=== PATIENT | female | born 1935 | race Caucasian/White ===

== ENCOUNTER 2018-01-20 06:21 | Day surgery (SDC) | payer MEDICARE, OTHER ==
[~2018-01-20] VITALS: Ht 165.1 cm; Wt 67.8 kg
[~2018-01-20 06:21] MED LIST: ASPI81TA82 PO; ATOR40TA49 PO; OMEP20TA39 PO; SYNT88TA PO
[2018-01-20] MEDS ORDERED: IOHEXOL 350 MG/ML 100 ML BTL (for Cath Lab) OTHER ONE (06:22)
[2018-01-20] MEDS ORDERED: SODIUM CHLOR 0.9% 1000 ML INJ 1,000 ML IV SCH ×2 (06:45→10:00)
[2018-01-20] MEDS ORDERED: ARTH650T6 PO (07:04)
[2018-01-20] MEDS ORDERED: NITR1SUB3 SL (07:04)
[2018-01-20] MEDS ORDERED: METO1TAB42 PO (07:04)
[2018-01-20] MEDS ORDERED: CHOL5000 PO (07:04)
[2018-01-20] MEDS ORDERED: SIMV40TA PO (07:04)
[2018-01-20] MEDS ORDERED: TYLE325T PO (07:04)
[2018-01-20] MEDS ORDERED: VITA10002 PO (07:04)
[2018-01-20] MEDS ORDERED: LEVO88TA2 PO (07:04)
[2018-01-20] MEDS ORDERED: ASPI81TA23 PO (07:04)
[2018-01-20 07:05] VITALS: BP 130/66; PULSE 61; RESP 16; TEMP 98.1; O2SAT 97
[2018-01-20 07:16] LABS: AUTOMATED NEUTROPHIL # 3.7 TH/MM3 (1.8-7.7); BASOPHIL % 0.7 % (0.0-2.0); EOSINOPHIL # 0.5 TH/MM3 (0-0.4); EOSINOPHIL % 7.6 % (0.0-4.0); HEMATOCRIT 43.6 % (35.0-46.0); HEMOGLOBIN 14.8 GM/DL (11.6-15.3); LYMPH % 26.7 % (9.0-44.0); LYMPHOCYTE # 1.8 TH/MM3 (1.0-4.8); MEAN CELL VOLUME 97.9 FL (80.0-100.0); MEAN CORPUSCULAR HEMOGLOBIN 33.2 PG (27.0-34.0); MEAN CORPUSCULAR HGB CONC 33.9 % (32.0-36.0); MEAN PLATELET VOLUME 7.3 FL (7.0-11.0); MONO % 9.9 % (0.0-8.0); MONOCYTE # 0.7 TH/MM3 (0-0.9); NEUT % 55.1 % (16.0-70.0); PLATELET COUNT 221 TH/MM3 (150-450); RED BLOOD COUNT 4.45 MIL/MM3 (4.00-5.30); RED CELL DISTRIBUTION WIDTH 12.7 % (11.6-17.2); WHITE BLOOD COUNT 6.8 TH/MM3 (4.0-11.0)
[2018-01-20 07:27] LABS: PROTHROMBIN TIME - PATIENT 10.2 SEC (9.8-11.6)
[2018-01-20 07:44] LABS: BICARBONATE 28.1 MEQ/L (21.0-32.0); CALCIUM 9.1 MG/DL (8.5-10.1); CREATININE 0.99 MG/DL (0.50-1.00)
[2018-01-20] MEDS ORDERED: HEPARIN-NS/PF FLUSH BAG 2,000 ML IV FLUSH ONE (08:16)
[2018-01-20] MEDS ORDERED: diphenhydrAMINE HCL 50 MG/ML VIAL ONE (08:25)
[2018-01-20] MEDS ORDERED: MIDAZOLAM HCL 2 MG/2 ML VIAL ONE (08:56)
--- NOTE | 2018-01-20 09:42 | CATHPROC ---
[facility] HIS Report Study Information Study Number Admission Scheduled Start Study Start [id number] Jan 20 2018 6:21AM 01/20/2018 Jan 20 2018 8:13AM [place] [facility] Cardiac Catheterization Admit Source Facility Department Other [facility] - Physical Education Specialist Physician and Clinical Staff Initial MD Bautista, Katey Ironworker Machine Operator Carrie Norton,ADOLFO Recorder Keara Jacobson,FISH CAKE MAKER TECH2 Scrub Alexia Medel ,RT(R) Procedures Performed Procedure Location (Site) Vessel Name Angiogram LV LV Ventricle Coronary Angiograms LCA Left Coronary Coronary Angiograms RCA Right Coronary Equipment Time Nail Making Machine Tender Description Size Mfg Part Number Used/Scraped STARCLOSE, VASCULAR CLOSER [id number] 09:24 LIN CRITICAL CARE FR 6 Used SYSTEM *[id number] TRANSDUCER, TRUWAVE [id number] 08:26 PEREZ GILES * Used W/STOCKCOCK *[id number] [id number] *[id number] [id number] *[id number] PIGTAIL ANG. 145 INFINITI 534-652S CATHETER *[id number] 08:26 MEDLINE INDUSTRIES PACK, CCL CUSTOM * Used *[id number] 08:26 adaffix PACER PEN, SKIN DUAL W/ RULER * Used *[id number] 08:26 Visible Path MEDICAL SHEATH, FR6.5 PRELUDE 11CM FR 6.5 038ACT Used *[id number] 08:26 Visible Path MEDICAL WIRE, 3MMJ .035 180CM 180CM Used *[id number] 08:26 NAMIC MANIFOLD, 4 PORT * Used *[id number] 08:26 NYCOMED OMNIPAQUE, 350 MG, 150ML 150ML [id number] Used 09:14 NYCOMED OMNIPAQUE, 350 MG, 50ML 50ML [id number] Used [id number] 08:26 Triptelligent MEDICAL BLANKET,WARM AIR CCL * Used *[id number] History: Current Medications Medication Dosage/Unit Route Frequency Last Date/Time Taken ASA Statins (any) LOPRESSOR Synthroid NTG SL History: Allergies Allergy Reaction No Known Allergies NSAIDS (Non-Steroidal Anti- Inflamma ibuprofen alendronate sodium risedronate sodium multivitamin History: Risk Factors Family History of Hypertension Dyslipidemia Previous [facility] Previous Heart Failure Premature CAD Yes Yes No No No Prior Valve Prior PCI Prior CABG Surgery No No No Cerebrovascular Peripheral Artery Chronic Lung On Dialysis Diabetes Disease Disease Disease No No Yes No No History: Symptoms/Diagnosis Selection Items Chest pain MATTHEWS SOB History: Stress Tests Stress or Imaging Studies Performed Yes Standard Exercise Stress Test No Stress Echo No Stress Test SPECT Stress Test SPECT Result Stress Test SPECT Ischemia Risk/Extent Yes Positive Intermediate Stress Test CMR No Cardiac CTA Coronary Calcium Score No No History: Arrhythmias Selection Items Supraventricular History: Other Disease Selection Items Renal Failure/Insufficiency History: Other Current Smoker Method Quit Packs a Day Years Used Pack Years No Cigarettes 35 Years Ago 1 6 6 Labs Hgb (g/dl) Hct (%) RBC (MIL/MM3) WBC (l/cumm) Platelets (thousands) 11.60-17.00 35.00-51.00 4.00-5.90 4.00-11.00 150.00-450.00 14.8 43.6 4.4 6.8 221 Glucose (mg/dl) BUN (mg/dl) Creatinine (mg/dl) BUN:Creatinine (1:x) 74.00-106.00 7.00-18.00 0.50-1.30 10.00-20.00 104 20 0.9 22.2 Na (meq/l) K (meq/l) Cl (meq/l) CO2 (mmol/L) Ca (mg/dl) 136.00-145.00 3.50-5.10 98.00-107.00 21.00-32.00 8.50-10.10 142 4.1 107 28.1 9.1 PT (sec) PTT (sec) INR (PTT:PT) 9.80-11.60 24.30-30.10 0.90-1.10 10.2 33.1 1 CPK-MB (ng/ML) 0.50-3.60 Not Drawn Medication Medication Total Dose (Bolus/Oral) Medication Total Dosage/Unit 1% XYLOCAINE 20 mL FENTANYL 25 mcg OXYGEN 2 l/min VERSED 1 mg Medications (Bolus/Oral) Medication Time Given Dosage/Unit Administered By Reason FENTANYL 01/20/2018 8:56:12 AM 25 mcg Carrie Norton 25 mcg FENTANYL given in lab by Carrie Norton, RN in Left Antecubital via Peripheral IV. Ordered by Katey Bautista. 1% XYLOCAINE 01/20/2018 8:56:54 AM 20 mL Katey Bautista 20 mL 1% XYLOCAINE given in lab by Katey Bautista in Right Groin via Subcutaneous. Ordered by Katey Bautista. VERSED 01/20/2018 8:57:05 AM 1 mg Carrie Norton 1 mg VERSED given in lab by Carrie Norton, ADOLFO in Left Antecubital via Peripheral IV. Ordered by Katey Dumont. OXYGEN 01/20/2018 8:59:01 AM 2 l/min Carrie Norton 2 l/min OXYGEN given in lab by Carrie Norton RN via Nasal. Ordered by Katey Bautista. Initial Case Assessment Cardiovascular HR Rhythm NIBP Chest Pain 61 sr 116/59 0 Circulatory - Right Pulses Posterior Tibial Femoral 1 3 Scale (0,1,2,3,4,d) Circulatory - Left Pulses Posterior Tibial Femoral 3 Scale (0,1,2,3,4,d) Neurological State Oriented to time-place- Alert Moves all extremities person Respiration - General Respiration Rate SpO2 (%) (B/min) 15 96 Final Case Assessment Cardiovascular HR Rhythm NIBP Chest Pain 60 sr 118/67 0 Circulatory - Right Pulses Posterior Tibial Femoral 1 3 Scale (0,1,2,3,4,d) Circulatory - Left Pulses Posterior Tibial Femoral 3 Scale (0,1,2,3,4,d) Neurological State Oriented to time-place- Alert Moves all extremities person Respiration - General Respiration Rate SpO2 (%) (B/min) 18 98 Chronological Log Time Study Chronological Log 8:10:12 Patient arrived via Bed. 8:13:20 Patient Name, D.O.B, / Armband Verified By R.N. 8:13:21 Consent signed by the physician and the patient and verified by the Physical Education Specialist staff. 8:13:22 Pre-op and post- op instructions given; patient acknowledges understanding of instructions. 8:13:23 Verbal Stimulation=2 Physical Stimulation=2 Airway=2 Respiration=2 TOTAL=8. (0=absent, 1=nicole ited, 2=present) 8:13:26 Presedation assessment performed by Physical Education Specialist RN. 8:13:35 Patient has been NPO for More than 6Hrs. 8:13:38 Skin Breakdown-none 8:13:41 Patient Warmer Placed on the Table. 8:13:44 Hugh Prominences Protected 8:13:46 A # 20 IV was noted in the Antecubital (left). Grade = 0 Vitals capture started with the following parameters, Patient=Adult, Interval=5 min, Initial Pre dpsos=096 mmHg, 8:15:55 Deflation Rate=5 mmHg, Cuff placed on Right Arm 8:16:35 HR=72 bpm, WWSX=955/58 mmhg, SpO2=97.0 %, Resp=20 B/min, Pain=0, Nnamdi=10, Candelaria=2 8:21:31 Reference ECG taken 8:21:32 HR=53 bpm, YPIP=450/59 mmhg, SpO2=96.0 %, Resp=13 B/min 8:22:27 History and physical on the chart or being dictated. Assessment: Initial Case, HR=61 BPM, Rhythm=sr, SMIV=988/59 mmhg, Chest Pain=0 Right Pulses: Post Tib=1, Femoral=3 8:22:29 Left Pulses: Kolton Ped=1, Femoral=3 Neurological: State=Alert, Ox3, DUMAS Respiration: Resp=15 B/min, SpO2=96 % 8:25:50 Bilateral groins prepped with 2% chlorhexidine, and draped after a 3 minute waiting time. 8:26:31 HR=54 bpm, TLXY=543/60 mmhg, SpO2=96.0 %, Resp=17 B/min 8:29:57 Pressure channel 1 zeroed. 8:31:32 HR=60 bpm, UDPO=705/57 mmhg, SpO2=95 %, Resp=20 B/min 8:31:53 MD paged 8:36:33 HR=59 bpm, KSXX=035/60 mmhg, SpO2=95.0 %, Resp=19 B/min 8:42:11 HR=58 bpm, SKYW=283/58 mmhg, SpO2=96.0 %, Resp=18 B/min, Pain=0, Nnamdi=10, Candelaria=2 8:46:33 HR=60 bpm, MKLA=726/64 mmhg, SpO2=96.0 %, Resp=9 B/min 8:46:57 MD arrived. 8:51:32 HR=64 bpm, GJJX=141/55 mmhg, SpO2=96.0 %, Resp=15 B/min Time Out. Correct patient, correct procedure, correct physician, power injector loaded with cont rast with surgical team 8:55:08 present. Time Out Concurred by MD and individual staff in procedure. 8:55:25 Case Start 8:56:12 25 mcg FENTANYL given in lab by Carrie Norton, ADOLFO in Left Antecubital via Peripheral IV. Or dered by Katey Bautista. 8:56:35 HR=53 bpm, ULCR=328/62 mmhg, SpO2=97.0 %, Resp=16 B/min 8:56:54 20 mL 1% XYLOCAINE given in lab by Katey Bautista in Right Groin via Subcutaneous. Ordered b y Katey Bautista. 8:57:05 1 mg VERSED given in lab by Carrie Norton RN in Left Antecubital via Peripheral IV. Ordere d by Katey Bautista. 8:59:01 2 l/min OXYGEN given in lab by Carrie Norton RN via Nasal. Ordered by Katey Bautista. 8:59:27 Access site was Right Femoral Artery. 8:59:39 A SHEATH, FR6.5 PRELUDE 11CM FR 6.5 was advanced into the Fem Art (right) using the Percutan eous technique. 9:01:38 HR=58 bpm, UJXJ=711/54 mmhg, SpO2=92.0 %, Resp=11 B/min A JL 4.0 INFINITI CATHETER FR 6 was advanced over a wire. OMNIPAQUE, 350 MG, 150ML 150ML was use d for :54 injections. Recorded Pressure: Ao, HR=61, Condition=Condition 1 9:04:07 (Aorta) Ao 97/48/67 9:05:49 The LCA was injected and visualized at various angles. OMNIPAQUE, 350 MG, 150ML 150ML used. 9:06:35 HR=62 bpm, NIBP=99/54 mmhg, SpO2=94.0 %, Resp=14 B/min 9:09:04 Catheter was removed A JR 4.0 INFINITI CATHETER FR 6 was advanced over a wire. OMNIPAQUE, 350 MG, 150ML 150ML was use d for 9:09:05 injections. 9:11:34 HR=65 bpm, TWFC=199/46 mmhg, SpO2=97.0 %, Resp=14 B/min 9:12:20 The RCA was injected and visualized at various angles. OMNIPAQUE, 350 MG, 150ML 150ML used. 9:12:37 Catheter was removed A PIGTAIL ANG. 145 INFINITI CATHETER FR 6 was advanced over a wire. OMNIPAQUE, 350 MG, 50ML 50ML was used 9:13:31 for injections. Recorded Pressure: LV, HR=66, Condition=Condition 1 9:15:27 (Left Ventricle) LV 107/4/16 9:16:35 HR=64 bpm, EOGU=523/58 mmhg, SpO2=98.0 %, Resp=14 B/min 9:17:22 The LV was injected at 10 cc/sec for a total of 24. OMNIPAQUE, 350 MG, 50ML 50ML used. Recorded Pressure: LV, Ao, HR=72, Condition=Condition 1 9:18:17 (Left Ventricle) LV 115/9/17, (Aorta) Ao 122/55/86 9:19:21 Catheter was removed 9:21:34 HR=64 bpm, GPRY=582/61 mmhg, SpO2=99.0 %, Resp=17 B/min 9:23:31 An injection in the Fem Art (right) was made through the SHEATH, FR6.5 PRELUDE 11CM FR 6.5. 9:23:41 STARCLOSE, VASCULAR CLOSER SYSTEM FR 6 placement in the Fem Art (right) 9:26:35 HR=62 bpm, SNBP=450/67 mmhg, SpO2=99.0 %, Resp=11 B/min 9:28:46 Case End 9:29:14 Sterile dressing applied to site 9:29:15 No case complications noted. 9:29:16 Cine recording checked. Assessment: Final Case, HR=60 BPM, Rhythm=sr, WBBE=993/67 mmhg, Chest Pain=0 Right Pulses: Post Tib=1, Femoral=3 9:29:21 Left Pulses: [place] Ped=1, Femoral=3 Neurological: State=Alert, Ox3, DUMAS Respiration: Resp=18 B/min, SpO2=98 % 9:30:15 Bedside Report will be given. 9:31:36 HR=56 bpm, OPOS=214/71 mmhg, HyO0=473.0 %, Resp=19 B/min 9:34:36 Patient moved to bed 9:34:40 Vitals capture stopped. 9:36:02 Patient transported to DOCU End Study - Contrast Media Used In Study Contrast Total Opened (mL) Total Used (mL) Total Wasted (mL) Omnipaque 70 70 0 End Study - Maximum Contrast Load Max Contrast Load (mL) 376.8 End Study - Radiation Exposure Fluoro Time (minutes) 2.7 End Study - Sheaths Sheaths Pulled By Sheath Hold Time (min) Katey Bautista End Study - Patient Fluids IV Intake (mL) Total Output (mL) 1000 End Study - Patient Disposition Complications Transferred To Interventional Outcome No Telemetry Bed No attempt made
[2018-01-20] MEDS ORDERED: ONDANSETRON HCL 4 MG/2 ML VIAL IV PUSH PRN (09:45)
[2018-01-20] MEDS ORDERED: SODIUM CHLORIDE 0.9% FLUSH 10 ML FLUSH IV FLUSH PRN (09:45)
[2018-01-20] MEDS ORDERED: SODIUM CHLOR 0.9% 250 ML INJ 250 ML IV PRN (09:45)
[2018-01-20] MEDS ORDERED: BACITRACIN OINT 0.9 GM PKT TOP ONE (09:45)
[2018-01-20] MEDS ORDERED: ATROPINE SULFATE 1 MG/ML VIAL IV PUSH PRN (09:45)
[2018-01-20] MEDS ORDERED: MISC INFORMATION XX ONE (09:45)
[2018-01-20] MEDS ORDERED: ACETAMINOPHEN 500 MG CPLT PO PRN (10:00)
--- NOTE | 2018-01-20 10:19 | MA ---
cc: Katey Bautista MD, Deanna K MD DATE: 01/20/2018 PROCEDURE: 1. Left heart catheterization. 2. Coronary arteriogram. 3. Left ventriculogram. 4. Right femoral arteriogram. 5. Right femoral arteriotomy site closure using a StarClose device. ONION TOPPER: Eleazar Bautista MD CHIEF INFORMATION OFFICER: Alexia HOOVER(Prudence). INDICATION: Recurrent angina equivalent symptoms and abnormal myocardial perfusion stress study with moderate inferior and mild lateral wall ischemia. Because of her recurrent symptoms and poorly controlled risk factors, she was advised to proceed with cardiac catheterization to delineate her coronary anatomy. PROCEDURE: After obtaining informed consent, the right groin was prepped in the usual sterile fashion. 15 mL of 1% lidocaine was used for local anesthesia. Using the modified Seldinger technique, the right femoral artery was cannulated and a 6-Colombian short sheath was inserted in the right femoral artery. Using the above-mentioned diagnostic catheter, selective coronary angiograms were performed. This was followed by left ventriculogram performed in the MANZANARES view at 30-degree angle. At the end of the procedure, right femoral system was injected revealing no significant disease and a StarClose device was applied achieving adequate hemostasis. The patient tolerated the procedure well without complication at the time of dictation. CARDIAC CATHETERIZATION FINDINGS: HEMODYNAMICS: Aortic pressure was 120/60 mmHg. Mean aortic pressure was 80 mmHg. LVEDP was around 18 mmHg. There was no gradient across the aortic valve. CORONARIES: Left main artery arose from the left sinus of Valsalva, a relatively long vessel, had minimal irregularities of less than 20%. Left circumflex artery branched from the left main artery, had mild luminal irregularities of less than 20%. It gave a high OM branch that bifurcated to upper and lower branches and those had mild proximal disease ranging between 30-40%. The circumflex distally gave 2 PLV branches that were tortuous and had minimal irregularities of less than 20%. Left anterior descending artery branched from the left main artery. This had mild diffuse irregularities of less than 20%. The LAD extended distally to wrap around the apex. It gave diagonal and septal branches that were minute and had minimal irregularities of less than 20%. Right coronary artery arose from the right sinus of Valsalva. This had a proximal 40% on a bend with some possible spasm, but no damping of pressure. The RCA gave PDA and PLV arteries distally that were relatively of good size and had minimal irregularities of less than 20%. Two mid-RV branches that were relatively small with no significant disease. LEFT VENTRICULOGRAM: Left ventriculogram revealed adequate wall motion, preserved systolic function, ejection fraction visual estimates around 60%. There is mild mitral regurgitation. CONCLUSION OF THE CARDIAC CATHETERIZATION: 1. Mild epicardial coronary artery disease with mild to moderate ostial RCA disease. 2. Dominant RCA system. 3. Normal left ventricular systolic function. 4. Elevated left ventricular end-diastolic pressure (18 mmHg). RECOMMENDATIONS: Medical therapy with tight control of risk factors. MD LALIT Galvez/SB , 09:38 AM , 10:18 AM
--- NOTE | 2018-01-20 20:17 | EKG ---
Date Performed: 01/20/2018 Time Performed: 07:18:28 PTAGE: 82 years EKG: Sinus rhythm . Normal ECG PREVIOUS TRACING : 06/09/2014 15.42 Since the previous tracing, no significant change noted DOCTOR: Bruce Minaya Interpretating Date/Time 01/20/2018 20:15:18
== END 2018-01-20 13:10 | disposition home or self-care (01) ==
LOC: HDOC 06:21 → HDIC 06:21 → HDOC 13:10
PROVIDERS: ATTEND Internal Medicine Interventional Cardiology
DX: I25.119 Atherosclerotic heart disease of native coronary artery with unspecified angina pectoris (principal); R94.39 Abnormal result of other cardiovascular function study; I34.0 Nonrheumatic mitral (valve) insufficiency; I34.1 Nonrheumatic mitral (valve) prolapse; R07.89 Other chest pain; I47.1 Supraventricular tachycardia; E03.9 Hypothyroidism, unspecified; E78.5 Hyperlipidemia, unspecified; E55.9 Vitamin D deficiency, unspecified; N18.4 Chronic kidney disease, stage 4 (severe); R73.02 Impaired glucose tolerance (oral); J32.8 Other chronic sinusitis; I73.9 Peripheral vascular disease, unspecified; R03.0 Elevated blood-pressure reading, without diagnosis of hypertension; R55 Syncope and collapse; I38 Endocarditis, valve unspecified
CPT/HCPCS: 80048; 85025; 85610; 85730; 93005; 93458; 99152; 99153; C1760; C1769; C1893; G0269; J1200; J1644; J2250; J3010; Q9967

== ENCOUNTER 2018-02-26 13:51 | Emergency (ER) | payer OTHER ==
[~2018-02-26] VITALS: Ht 165.1 cm; Wt 68.0 kg
[~2018-02-26 13:51] MED LIST changes: +ARTH650T6 PO; +ASPI81TA23 PO; -ASPI81TA82 PO; -ATOR40TA49 PO; +CHOL5000 PO; +LEVO88TA2 PO; +METO1TAB42 PO; +NITR1SUB3 SL; -OMEP20TA39 PO; +SIMV40TA PO; -SYNT88TA PO; +TYLE325T PO; +VITA10002 PO
[2018-02-26 14:00] VITALS: BP 119/65; PULSE 61; RESP 18; TEMP 98; O2SAT 99
[2018-02-26] MEDS ORDERED: ONDANSETRON HCL 4 MG/2 ML VIAL IVP ONE (15:00)
[2018-02-26] MEDS ORDERED: SODIUM CHLORID 0.9% 500 ML INJ 500 ML IV ONE (15:00)
--- NOTE | 2018-02-26 15:02 | PD ---
HPI Chief Complaint: General Weakness Time Seen by Provider: 14:28 Travel History International Travel<30 days: No Contact w/Intl Traveler<30days: No Traveled to known affect area: No History of Present Illness HPI 82-year-old female presents emergency department at the request of her primary care physician, Dr. Beatty for evaluation of lightheadedness, weakness that has been persistent for the last 2-3 days. She has associated nausea. Denies shortness of breath but says she does have some reproducible pain when taking a deep breath. States that she was at her primary care physician office for reevaluation of chest wall and shoulder musculoskeletal pain when she recommended patient come to the emergency department for evaluation. Says that last week patient moved in objects with water and wet laundry one day and woke up the next with right anterior chest wall, shoulder and scapular pain. She was evaluated and prescribed 400 mg ibuprofen 3 times daily for muscular skeletal pain. Says that the pain has reduced with ibuprofen and heat however however is still persistent. She believes that this is why patient was referred to the hospital. Says that she has had some loose stools as a result of this ibuprofen. Of note, patient had a heart cath 1 months ago but no stents were placed. Says she was given a different dose of metoprolol 1 month ago as well and believes this may be contributing to her weakness. The heart cath was completed because she mentioned to her dovetailer that she has some chest tightness while playing cards 1 day. She had a Holter as well but does not know the results. She denies any falls. She takes BASA daily. No other blood thinners or anticoagulants. PFSH Past Medical History Cancer: Yes (skin) Cardiac Catheterization: Yes Cardiovascular Problems: Yes (angina) High Cholesterol: Yes Hypertension: Yes Thyroid Disease: Yes (HYPO) Menopausal: Yes Social History Alcohol Use: Yes (OCCASSIONAL) Tobacco Use: No Substance Use: No Allergies-Medications (Allergen,Severity, Reaction): Coded Allergies: NSAIDS (Non-Steroidal Anti-Inflamma (Verified Allergy, Unknown, 01/20/18) alendronate sodium (Verified Allergy, Unknown, 01/20/18) ibuprofen (Verified Allergy, Unknown, 01/20/18) risedronate sodium (Verified Allergy, Unknown, 01/20/18) Uncoded Allergies: multivitamin (Adverse Reaction, Unknown, 01/20/18) Reported Meds & Prescriptions Reported Meds & Active Scripts Active Robaxin (Methocarbamol) 500 Mg Tab 500 Mg PO TID 3 Days Reported Vitamin D3 (Cholecalciferol) 5,000 Unit Cap 5,000 Units PO DAILY Vitamin B-12 (Cyanocobalamin) 1,000 Mcg Tab 1,000 Mcg PO DAILY Tylenol (Acetaminophen) 325 Mg Tab 325 Mg PO Q4H Simvastatin 40 Mg Tab 40 Mg PO HS Nitroglycerin SL (Nitroglycerin) 0.4 Mg Subl 0.4 Mg SL DIRECTED PRN ONE TABLET UNDER THE TONGUE NEEDED FOR CHEST PAIN, MAY REPEAT EVERY FIVE MINUTES FOR A TOTAL OF 3 DOSES OR CALL 911 IF NO RELIEF Metoprolol Succinate ER 24 HR (Metoprolol Succinate) 25 Mg Tab 25 Mg PO DAILY Levothyroxine (Levothyroxine Sodium) 88 Mcg Tab 88 Mcg PO DAILY Aspirin EC (Aspirin) 81 Mg Tabdr 81 Mg PO DAILY Arthritis Pain Reliever ER 8 HR (Acetaminophen) 650 Mg Tab 650 Mg PO Q8HR PRN Review of Systems Except as stated in HPI: all other systems reviewed are Neg Physical Exam Narrative GENERAL: Well developed, well-nourished in no apparent distress SKIN: Focused skin assessment warm/dry. HEAD: Atraumatic. Normocephalic. EYES: Pupils equal and round. No scleral icterus. No injection or drainage. ENT: No nasal bleeding or discharge. Mucous membranes pink and moist. NECK: Trachea midline. No JVD. Tenderness palpation of the right sternocleidomastoid muscles CARDIOVASCULAR: Regular rate and rhythm. No murmur appreciated. RESPIRATORY: No accessory muscle use. Clear to auscultation. Breath sounds equal bilaterally. GASTROINTESTINAL: Abdomen soft, non-tender, nondistended. Hepatic and splenic margins not palpable. MUSCULOSKELETAL: No obvious deformities. No clubbing. No cyanosis. No edema. Homans sign negative bilaterally. Significant tenderness to light palpation in the musculature of the subscapular area with muscle spasms. Tenderness palpation of the musculature of the trapezius and right anterior pectoral. NEUROLOGICAL: Awake and alert. No obvious cranial nerve deficits. Motor grossly within normal limits. Normal speech. PSYCHIATRIC: Appropriate mood and affect; insight and judgment normal. Data Data Last Documented VS Vital Signs Date Time Temp Pulse Resp B/P (MAP) Pulse Ox O2 Delivery O2 Flow Rate FiO2 02/26/18 17:33 65 17 140/65 (90) 97 Room Air 02/26/18 14:00 98.0 Orders Orders Electrocardiogram (02/26/18 14:55) Complete Blood Count With Diff (02/26/18 14:55) Comprehensive Metabolic Panel (02/26/18 14:55) Magnesium (Mg) (02/26/18 14:55) Ckmb (Isoenzyme) Profile (02/26/18 14:55) Troponin I (02/26/18 14:55) Act Partial Throm Time (Ptt) (02/26/18 14:55) Prothrombin Time / Inr (Pt) (02/26/18 14:55) Urinalysis - C+S If Indicated (02/26/18 14:55) Chest, Single Ap (02/26/18 14:55) Ct Brain W/O Iv Contrast(Rout) (02/26/18 14:55) Ondansetron Inj (Zofran Inj) (02/26/18 15:00) Sodium Chlorid 0.9% 500 Ml Inj (Ns 500 M (02/26/18 15:00) Orthostatic Vital Signs (02/26/18 17:14) Orphenadrine Inj (Norflex Inj) (02/26/18 17:30) Acetamin-Hydrocod 325-5 Mg ([place] 5-325 (02/26/18 17:30) Ed Discharge Order (02/26/18 18:51) Labs Laboratory Tests Test 02/26/18 15:00 White Blood Count 7.6 TH/MM3 Red Blood Count 4.62 MIL/MM3 Hemoglobin 14.8 GM/DL Hematocrit 44.8 % Mean Corpuscular Volume 96.9 FL Mean Corpuscular Hemoglobin 31.9 PG Mean Corpuscular Hemoglobin Concent 32.9 % Red Cell Distribution Width 13.1 % Platelet Count 221 TH/MM3 Mean Platelet Volume 7.6 FL Neutrophils (%) (Auto) 66.2 % Lymphocytes (%) (Auto) 24.5 % Monocytes (%) (Auto) 6.6 % Eosinophils (%) (Auto) 2.2 % Basophils (%) (Auto) 0.5 % Neutrophils # (Auto) 5.0 TH/MM3 Lymphocytes # (Auto) 1.9 TH/MM3 Monocytes # (Auto) 0.5 TH/MM3 Eosinophils # (Auto) 0.2 TH/MM3 Basophils # (Auto) 0.0 TH/MM3 CBC Comment DIFF FINAL Differential Comment Prothrombin Time 10.0 SEC Prothromb Time International Ratio 1.0 RATIO Activated Partial Thromboplast Time 31.0 SEC Urine Color COLORLESS Urine Turbidity CLEAR Urine pH 5.0 Urine Specific [place] 1.007 Urine Protein NEG mg/dL Urine Glucose (UA) NEG mg/dL Urine Ketones NEG mg/dL Urine Occult Blood NEG Urine Nitrite NEG Urine Bilirubin NEG Urine Urobilinogen LESS THAN 2.0 MG/DL Urine Leukocyte Esterase TRACE Urine WBC 2 /hpf Urine Squamous Epithelial Cells 1 /hpf Microscopic Urinalysis Comment CULT NOT INDICATED Blood Urea Nitrogen 20 MG/DL Creatinine 1.04 MG/DL Random Glucose 90 MG/DL Total Protein 7.0 GM/DL Albumin 3.8 GM/DL Calcium Level 9.0 MG/DL Magnesium Level 2.3 MG/DL Alkaline Phosphatase 69 U/L Aspartate Amino Transf (AST/SGOT) 16 U/L Alanine Aminotransferase (ALT/SGPT) 19 U/L Total Bilirubin 0.5 MG/DL Sodium Level 144 MEQ/L Potassium Level 4.3 MEQ/L Chloride Level 108 MEQ/L Carbon Dioxide Level 27.4 MEQ/L Anion Gap 9 MEQ/L Estimat Glomerular Filtration Rate 51 ML/MIN Total Creatine Kinase 57 U/L Troponin I LESS THAN 0.02 NG/ML MDM Medical Decision Making Medical Screen Exam Complete: Yes Emergency Medical Condition: Yes Differential Diagnosis ACS, muscle spasms, chest wall pain, dehydration, UTI, generalized weakness Narrative Course 82-year-old female presents emergency department at the request of her primary care physician, Dr. Beatty for evaluation of lightheadedness, weakness that has been persistent for the last 2-3 days. She has associated nausea. Denies shortness of breath but says she does have some reproducible pain when taking a deep breath. States that she was at her primary care physician office for reevaluation of chest wall and shoulder musculoskeletal pain when she recommended patient come to the emergency department for evaluation. Says that last week patient moved in objects with water and wet laundry one day and woke up the next with right anterior chest wall, shoulder and scapular pain. She was evaluated and prescribed 400 mg ibuprofen 3 times daily for muscular skeletal pain. Says that the pain has reduced with ibuprofen and heat however however is still persistent. She believes that this is why patient was referred to the hospital. Says that she has had some loose stools as a result of this ibuprofen. Of note, patient had a heart cath 1 months ago but no stents were placed. Says she was given a different dose of metoprolol 1 month ago as well and believes this may be contributing to her weakness. The heart cath was completed because she mentioned to her dovetailer that she has some chest tightness while playing cards 1 day. She had a Holter as well but does not know the results. She denies any falls. She takes BASA daily. No other blood thinners or anticoagulants. Vital signs are stable. Orthostatics are negative. EKG shows sinus bradycardia without STEMI changes. Labs and imaging studies ordered. Labs are stable. Cardiac enzymes negative. Urinalysis noncontributory. Zofran for nausea, Robaxin for muscular pain and muscle spasms, hydrocodone for pain. I discussed the findings of the labs and imaging studies today with the patient and daughter. Advised that her labs and imaging studies look appropriate and did not feel that she needed to stay for further evaluation. She no longer feels nauseous. It seems that the primary care physician was concerned about the persistent muscle spasms and was concerned that maybe there was a secondary cause of her pain. I do not see that this is anything more than muscle spasms at this point. Patient admits to having decreased range of motion and decreased activity as a result of this pain. This may have exacerbated or continue to cause her pain. Patient will be discharged with Robaxin. Advised to use caution when taking this medication. Advised to avoid ibuprofen for now. Continue movements as this may have resulted in the increased pain of her back and shoulder. Diagnosis Primary Impression: Muscle spasms of neck Additional Impression: Muscle spasm of back Referrals: Primary Care Physician Additional Instructions: Use ice or heat for symptom relief. You may use Robaxin for your muscle spasms. Use caution when taking muscle relaxers as they may make you feel drowsy or weak. Continue range of motion exercises to reduce muscular atrophy or worsening of your muscular pain. If symptoms persist or worsen, return to the emergency department. Follow up with your primary care physician within 2-3 days. Scripts Methocarbamol (Robaxin) 500 Mg Tab 500 MG PO TID for Muscle Spasm for 3 Days, TAB 0 Refills Prov: Tom Hayes MD 02/26/18 Disposition: 01 DISCHARGE HOME Condition: Stable Erica Amor Feb 26, 2018 15:02
--- NOTE | 2018-02-26 15:29 | RADRPT ---
EXAM DATE/TIME: 02/26/2018 15:21 [facility] COMPARISON: No previous studies available for comparison. INDICATIONS : Dizziness RADIATION DOSE: 35.74 CTDIvol (mGy) MEDICAL HISTORY : Cardiovascular disease. Hypertension. Skin cancer SURGICAL HISTORY : None. ENCOUNTER: Initial ACUITY: 1 day PAIN SCALE: 0/10 LOCATION: cranial TECHNIQUE: Multiple contiguous axial images were obtained of the head. Using automated exposure control and adj ustment of the mA and/or kV according to patient size, radiation dose was kept as low as reasonably a chievable to obtain optimal diagnostic quality images. DICOM format image data is available electro nically for review and comparison. FINDINGS: CEREBRUM: There is atrophy of the frontal lobes The ventricles are normal for age. No evidence of midline shif t, mass lesion, hemorrhage or acute infarction. No extra-axial fluid collections are seen. POSTERIOR FOSSA: The cerebellum and brainstem are intact. The 4th ventricle is midline. The cerebellopontine angle i s unremarkable. EXTRACRANIAL: The visualized portion of the orbits is intact. SKULL: The calvaria is intact. No evidence of skull fracture. CONCLUSION: Frontal lobe atrophy otherwise unremarkable noncontrast head CT. Heron Kwong MD on February 26, 2018 at 15:26 Board Certified Radiologist. This report was verified electronically.
[2018-02-26 15:32] LABS: BASOPHIL % 0.5 % (0.0-2.0); EOSINOPHIL # 0.2 TH/MM3 (0-0.4); EOSINOPHIL % 2.2 % (0.0-4.0); HEMATOCRIT 44.8 % (35.0-46.0); HEMOGLOBIN 14.8 GM/DL (11.6-15.3); LYMPH % 24.5 % (9.0-44.0); LYMPHOCYTE # 1.9 TH/MM3 (1.0-4.8); MEAN CELL VOLUME 96.9 FL (80.0-100.0); MEAN CORPUSCULAR HEMOGLOBIN 31.9 PG (27.0-34.0); MEAN CORPUSCULAR HGB CONC 32.9 % (32.0-36.0); MEAN PLATELET VOLUME 7.6 FL (7.0-11.0); MONO % 6.6 % (0.0-8.0); MONOCYTE # 0.5 TH/MM3 (0-0.9); NEUT % 66.2 % (16.0-70.0); PLATELET COUNT 221 TH/MM3 (150-450); RED BLOOD COUNT 4.62 MIL/MM3 (4.00-5.30); RED CELL DISTRIBUTION WIDTH 13.1 % (11.6-17.2); WHITE BLOOD COUNT 7.6 TH/MM3 (4.0-11.0)
[2018-02-26 15:36] LABS: BILIRUBIN, URINE NEG (NEG); BLOOD, URINE NEG (NEG); GLUCOSE,URINE NEG (NEG); KETONE, URINE NEG (NEG); NITRITE,URINE NEG (NEG); SQUAMOUS EPITHELIAL CELL URINE 1 /hpf (0-5); URINE COLOR COLORLESS (YELLW/STRAW); URINE LEUKOCYTE ESTERASE TRACE (NEG)
[2018-02-26 15:44] LABS: ALBUMIN 3.8 GM/DL (3.4-5.0); AST (GOT) 16 U/L (15-37); BICARBONATE 27.4 MEQ/L (21.0-32.0); BLOOD UREA NITROGEN 20 MG/DL (7-18); CHLORIDE 108 MEQ/L (98-107); CREATININE 1.04 MG/DL (0.50-1.00); GLOMERULAR FILTRATION RATE 51 ML/MIN (>89); GLUCOSE,RANDOM 90 MG/DL (74-106); MAGNESIUM 2.3 MG/DL (1.5-2.5); SODIUM (NA) 144 MEQ/L (136-145)
[2018-02-26 15:49] LABS: ALKALINE PHOSPHATASE 69 U/L (45-117); ALT (GPT) 19 U/L (10-53); TOTAL BILIRUBIN ADULT 0.5 MG/DL (0.2-1.0); TROPONIN I LESS THAN 0.02 NG/ML (0.02-0.05)
[2018-02-26] MEDS ORDERED: ACETAMINOPHEN/HYDROcodone 325 MG/5 MG TAB PO ONE (17:30)
[2018-02-26] MEDS ORDERED: ORPHENADRINE INJ 60 MG/2 ML AMP IM ONE (17:30)
[2018-02-26 17:32] VITALS: BP_SYST 140; BP_SYST 164; BP_SYST 168; BP_DIAS 65; BP_DIAS 70; BP_DIAS 72
[2018-02-26 17:33] VITALS: BP 140/65; PULSE 65; RESP 17; O2SAT 97
--- NOTE | 2018-02-26 18:04 | RADRPT ---
EXAM DATE/TIME: 02/26/2018 15:28 [facility] COMPARISON: CHEST SINGLE AP, October 22, 2012, 12:54. INDICATIONS : Right sided chest and back pain. Shortness of breath. MEDICAL HISTORY : None. SURGICAL HISTORY : Heart catheterization. ENCOUNTER: Initial ACUITY: 1 week PAIN SCORE: 8/10 LOCATION: Bilateral chest FINDINGS: A single view of the chest demonstrates the lungs to be symmetrically aerated without evidence of mas s, infiltrate or effusion. The cardiomediastinal contours are unremarkable. Osseous structures are intact. CONCLUSION: No evidence of acute cardiopulmonary disease. Tc Rojas MD on February 26, 2018 at 18:01 Board Certified Radiologist. This report was verified electronically.
[2018-02-26] MEDS ORDERED: ROBA500T PO (18:51)
--- NOTE | 2018-02-26 23:34 | EKG ---
Date Performed: 02/26/2018 Time Performed: 15:15:29 PTAGE: 82 years EKG: SINUS BRADYCARDIA MINIMAL ST DEPRESSION BORDERLINE ECG PREVIOUS TRACING : 01/20/2018 07.18 Since the previous tracing, no significant change noted DOCTOR: Devyn Gupta Interpretating Date/Time 02/26/2018 23:32:46
== END 2018-02-26 19:02 | disposition home or self-care (01) ==
LOC: NEPC 13:51
DX: M62.830 Muscle spasm of back (principal); R11.0 Nausea; R07.89 Other chest pain; E03.9 Hypothyroidism, unspecified; E78.00 Pure hypercholesterolemia, unspecified; I10 Essential (primary) hypertension
CPT/HCPCS: 70450; 71045; 80053; 81001; 82550; 83735; 84484; 85025; 85610; 85730; 93005; 96372; 96374; 99285; J2360; J2405; J7040